=== PATIENT | female | born 1980 | race Caucasian/White ===

== ENCOUNTER 2024-08-21 19:13 | Emergency (ER) | payer OTHER ==
[~2024-08-21] VITALS: Ht 152.4 cm; Wt 70.0 kg
[~2024-08-21 19:13] MED LIST: AMLO10TA80 PO; ASPI-1406 PO; HYDR100T11 MT
[2024-08-21 19:18] VITALS: O2SAT 98
[2024-08-21 20:28] LABS: BASOPHILS % 0.9 % (0.0-2.0); DIFFERENTIAL COMMENT 0; EOSINOPHILS % 2.7 % (0.0-5.0); HEMATOCRIT. 29.1 % (36.0-48.0); HEMOGLOBIN. 9.4 g/dL (12.0-16.0); LYMPHOCYTES % 23.4 % (20.0-50.0); MEAN CORPUSCULAR HEMOGLOBIN 24.7 pg (28.0-32.0); MEAN CORPUSCULAR HGB CONC 32.3 g/dL (31.0-37.0); MEAN CORPUSCULAR VOLUME 76.4 fL (81.0-99.0); MEAN PLATELET VOLUME 8.6 fl (7.4-10.4); MONOCYTES % 9.3 % (2.0-8.0); NEUTROPHILS % 63.7 % (40.0-76.0); PLATELET 293 x1000/uL (130-400); RED CELL DISTRIBUTION WIDTH 17.2 % (11.6-14.6)
[2024-08-21 20:35] LABS: CHLORIDE 115 mEq/L (98-107); POTASSIUM 3.2 mEq/L (3.5-5.1); SODIUM 145 mEq/L (136-145)
[2024-08-21 20:36] LABS: CARBON DIOXIDE 22 mEq/L (21-32)
[2024-08-21 20:37] LABS: CALCIUM 7.1 mg/dL (8.7-10.4)
[2024-08-21 20:39] LABS: INR 0.9; PROTHROMBIN TIME 10.3 sec (9.6-11.0)
[2024-08-21 20:41] LABS: CREATININE 0.6 mg/dL (0.6-1.0); GLUCOSE 74 mg/dL (70-105)
[2024-08-21 20:42] LABS: UREA NITROGEN BLOOD 13 mg/dL (9-23)
[2024-08-21 20:44] LABS: ETHANOL BLOOD < 10 mg/dL (<10)
[2024-08-21 20:47] LABS: HCG SCREEN NEGATIVE
[2024-08-21] MEDS: HYDROMORPHONE HCL/PF 2MG/ML INJ IV ONE (20:53)
[2024-08-21] MEDS: ACETAMINOPHEN 1000MG/100ML 100 ML IV ONE (20:54)
[2024-08-21] MEDS: POTASSIUM CHLORIDE 20MEQ TABLET SR PO NR (21:55)
[2024-08-21] MEDS: HYDRALAZINE 20MG/ML VIAL IV NR (21:56)
[2024-08-21] MEDS ORDERED: ZOLPIDEM TARTRATE 5MG TABLET PO PRN (22:45)
[2024-08-21] MEDS ORDERED: MAGNESIUM/ALUMINUM HYDROXIDE/SIMETHICONE 30ML UDC PO PRN (22:45)
[2024-08-21] MEDS ORDERED: DOCUSATE SODIUM 100MG CAPSULE PO PRN (22:45)
[2024-08-21] MEDS ORDERED: NITROGLYCERIN 0.4MG TABLET SL SL PRN (22:45)
[2024-08-21] MEDS ORDERED: ACETAMINOPHEN 325MG TABLET PO PRN ×2 (22:45)
[2024-08-21] MEDS ORDERED: CLONIDINE 0.1MG TABLET PO PRN (22:45)
[2024-08-21] MEDS ORDERED: ONDANSETRON HCL 4MG/2ML INJ IV PRN (22:45)
[2024-08-21] MEDS ORDERED: GUAIFENESIN 200MG/10ML SUGAR FREE UDC PO PRN (22:45)
[2024-08-21] MEDS ORDERED: IPRATROPIUM/ALBUTEROL 0.5-3(2.5)MG/3ML NEB NEB PRN (23:04)
[2024-08-21] MEDS ORDERED: KETOROLAC 15MG/ML VIAL IV PRN (23:04)
[2024-08-21] MEDS: LABETALOL 5MG/ML 4ML INJ IV NR (23:40)
[2024-08-21] MEDS: LOSARTAN 50 MG TABLET PO SCH (23:40)
[2024-08-21] MEDS: NIFEDIPINE XL 60MG TAB PO SCH (23:47)
[2024-08-22 00:05] VITALS: BP 165/96; PULSE 69; RESP 20; TEMP 36.61404; O2SAT 98
[2024-08-22 00:17] LABS: IRON 15 ug/dL (50-170); TRIGLYCERIDE 76 mg/dL (0-150)
[2024-08-22 00:18] LABS: LDL CHOLESTEROL 55 mg/dL (5-100)
[2024-08-22 00:19] LABS: CHOLESTEROL 140 mg/dL (<200); HDL CHOLESTEROL 66 mg/dL (>65); TROPONIN I HIGH SENSITIVITY 5 ng/L (3.0-34)
[2024-08-22 00:20] LABS: TOTAL IRON BINDING CAPACITY 426 ug/dl (250-425)
[2024-08-22 00:23] LABS: T4 FREE 1.37 ng/dL (0.89-1.76); THYROID STIMULATING HORMONE 0.19 uIU/mL (0.55-4.78)
[2024-08-22 00:29] LABS: VITAMIN B12 SERUM 588 pg/mL (211-911)
[2024-08-22 00:37] LABS: ETHANOL BLOOD < 10 mg/dL (<10)
[2024-08-22] MEDS ORDERED: HYDRALAZINE HCL 50MG TABLET PO SCH (06:00)
[2024-08-22] MEDS ORDERED: ENOXAPARIN 40MG/0.4ML SYR SUBCUT SCH (09:00)
[2024-08-22] MEDS ORDERED: FAMOTIDINE 20MG TABLET PO SCH (09:00)
[2024-08-22] MEDS ORDERED: ASPIRIN 81MG EC TABLET PO SCH (09:00)
== END 2024-08-22 00:34 | disposition short-term general hospital (02) ==
LOC: ER 19:13 → EDBEDREQ 19:58 → EDBEDREQTM 22:52 → ER 08-22 00:34
DX: I16.1 Hypertensive emergency (principal); R51.9 Headache, unspecified; Z79.82 Long term (current) use of aspirin; Z86.73 Personal history of transient ischemic attack (TIA), and cerebral infarction without residual deficits; Z88.0 Allergy status to penicillin; Z91.09 Other allergy status, other than to drugs and biological substances
CPT/HCPCS: 80061; 80048; 80320; 82607; 82746; 83036; 84703; 83880; 84439; 83540; 83550; 84443; 85025; 85610; 84484; 36415; 71045; 70450; 93005; 96365; 96375; 99285; J0360; J3490; J1171; Z7610 ×2; G0480; J0131